=== PATIENT | male | born 1935 | race Caucasian/White ===

== ENCOUNTER → 2017-09-20 | Outpatient (CLI) | payer OTHER ==
[~2017-09-20] MED LIST: ALLOPURINOL100 MG; ATENOLOL25 GM; ATENOLOL50 MG; AVAPRO150 MG; CELEBREX100 MG PO; CIPRO250 MG PO; COUMADIN1 MG; COUMADIN4 MG; FINASTERIDE5 MG; FLAGYL500MG PO; IBERSARTAN; ISOSORBIDE MONO60 MG; KAYEXALATE15 GM/60 M; NORVASC5 MG; SIMVASTATIN20 MG; STIOLTO RESPIMAT4 GM; SYNTHROID50 MCG; TESSALON PERLE100 MG PO; TUSSI PRES-B L120 M1 PO; ULTRACET PO; ZESTRIL10 MG; ZITHROMAX TRI-500 MG PO; ZYLOPRIM100 M1; ZYLOPRIM100 MG; [UNRECOGNIZED DRUG - OTHER]
== END | disposition home or self-care (01) ==
LOC: LAB 11:36
DX: D63.1 Anemia in chronic kidney disease (principal); D63.8 Anemia in other chronic diseases classified elsewhere; N18.1 Chronic kidney disease, stage 1; I10 Essential (primary) hypertension; R80.8 Other proteinuria

== ENCOUNTER 2017-10-17 09:35 | Outpatient (CLI) | payer OTHER | END 2017-10-17 09:51 | disposition home or self-care (01) | LOC: LAB 09:35 | DX: N18.4 Chronic kidney disease, stage 4 (severe) (principal); E87.5 Hyperkalemia; I48.2 Chronic atrial fibrillation ==

== ENCOUNTER 2017-11-02 07:11 | Emergency (ER) | payer OTHER ==
[~2017-11-02] VITALS: Ht 170.2 cm; Wt 70.8 kg
== END 2017-11-02 11:39 | disposition home or self-care (01) ==
LOC: ER 07:11
DX: S83.91XA Sprain of unspecified site of right knee, initial encounter (principal); X50.0XXA Overexertion from strenuous movement or load, initial encounter; Y93.01 Activity, walking, marching and hiking; Y92.018 Other place in single-family (private) house as the place of occurrence of the external cause; Y99.8 Other external cause status

== ENCOUNTER 2017-12-19 10:42 | Outpatient (CLI) | payer OTHER | END 2017-12-19 10:52 | disposition home or self-care (01) | LOC: LAB 10:42 | DX: I48.2 Chronic atrial fibrillation (principal) ==

== ENCOUNTER 2017-12-20 12:00 | Inpatient (IN) | payer OTHER ==
[~2017-12-20] VITALS: Ht 172.7 cm; Wt 72.6 kg
== END 2018-01-05 15:19 | disposition home or self-care (01) | DRG 292 ==
LOC: MEDI 12:00
PROVIDERS: Radiology Vascular & Interventional Radiology
PROC: BT43ZZZ Ultrasonography of Bilateral Kidneys (ICD-10-PCS; 2017-12-20)
PROC: 30233N1 Transfusion of Nonautologous Red Blood Cells into Peripheral Vein, Percutaneous Approach (ICD-10-PCS; 2017-12-20)
PROC: 3E0F7GC Introduction of Other Therapeutic Substance into Respiratory Tract, Via Natural or Artificial Opening (ICD-10-PCS; 2017-12-29)
PROC: 05HM33Z Insertion of Infusion Device into Right Internal Jugular Vein, Percutaneous Approach (ICD-10-PCS; principal; 2017-12-30 18:00)
PROC: 5A1D70Z Performance of Urinary Filtration, Intermittent, Less than 6 Hours Per Day (ICD-10-PCS; 2018-01-01)
DX: I13.0 Hypertensive heart and chronic kidney disease with heart failure and stage 1 through stage 4 chronic kidney disease, or unspecified chronic kidney disease (principal); N17.8 Other acute kidney failure; D68.32 Hemorrhagic disorder due to extrinsic circulating anticoagulants; N18.4 Chronic kidney disease, stage 4 (severe); I50.30 Unspecified diastolic (congestive) heart failure; D63.1 Anemia in chronic kidney disease; I48.0 Paroxysmal atrial fibrillation; E87.5 Hyperkalemia; Z79.01 Long term (current) use of anticoagulants; E86.0 Dehydration; T45.515A Adverse effect of anticoagulants, initial encounter

== ENCOUNTER 2018-01-23 06:51 | Outpatient (CLI) | payer OTHER | END 2018-01-23 07:14 | disposition home or self-care (01) | LOC: LAB 06:51 | DX: I48.0 Paroxysmal atrial fibrillation (principal) ==

== ENCOUNTER 2019-05-04 20:42 | Inpatient (IN) | payer OTHER ==
[~2019-05-04] VITALS: Ht 162.6 cm; Wt 67.1 kg
--- NOTE | 2019-05-04 21:15 | NUR ---
FAMILIAR DE PTE INDICA QUE ENCNTRARON PTE EN EL PISO DE [place] Y NO REACCIONABA. PTE INDICA DIFCULTAD PARA RESPIRAR. PTE ALERTA CONSCINETE Y ORIENTADO X3
[2019-05-04] MEDS ORDERED: TRAMADOL HCL50 MG (21:18)
--- NOTE | 2019-05-04 22:01 | NUR ---
FAMILIAR DE PTE INDICA QUE EN EL BRAZO TAMMY PTE TIENE NOELLE FISTULA, Y NO SE PUEDE CHARLI LA PRESION EN BRAZO TAMMY, REFIERE QUE PTE TIENE EN EL PECHO LADO DERECHO UN CATETER. PTE ES DE DIALYSIS. FAMILIAR INDICA DE SOSPECHA DA ALGUN PROBLEMA MENTAL YA QUE PTE SE (ESPACEA, SE LE OLVIDA EVENTOS DIARIOS, Y AVECES NO LOGRA SEGUIR O DARSE CUENTA DE OBJETOS EN MOVIMIENTO).
--- NOTE | 2019-05-04 22:25 | NUR ---
S ERECIBE PACIENTE MASCULINO DE 84 ANOS,ALERTA,ORIENTADO EN SINGH ESFERAS,EN COMPANIA DE FAMILIAR. UBICADO EN SELENA #17 AREA DE CP ER. CONECTADO A MONITOR CARDIACO,OXIMETRIA DE PULSO CONTINUA. POR ORDEN MEDICA DE SE COLECTAN MUESTRAS DE LABORATORIOS LAS CUALES SON ROTULAS Y ENVIADAS PARA ANALISIS. SE ADMINISTRA MEDICAMETO SAM ORDEN MEDICA BAJO MEDIDAS ASEPTICAS. PACIENTE NO PRESENTA REACCION ADVERSA. TANTO PIETRO PACIENTE Y FAMILIAR [place] SIDO ORIENTADOS SOBRE PROCEDIMIENTOS,LOS CUALES REFIEREN COMPRENDER. SE NOTIFICA ESTUDIO CT A PERSONAL DE TURNO. SE NOTIFICA XRAY A PERSONAL DE TURNO. SE UGO PACIENTE COMODO EN SELENA JUNTO A FAMILIAR. PENDIENTE RE EVALUACION MEDICA.
--- NOTE | 2019-05-04 23:32 | NUR ---
SE RECIBE PACIENTE ALERTA Y ORIENTADO POR SINGH ESFERAS EN COMPANIA DE FAMILIAR EN SELENA CONECTADO A MONITOR CARDIACO CON RITMO CARDIACO IRREGULAR HR 103LAT/MIN, OXIMETRIA DE PULSO AL MOMENTO CAPTURANDO 96% Y ASISTIDO RESPIRATORIAMENTE CON CANULA NASAL A 2 LTS. SE OBSERVA FISTULA EN BRAZO LT Y CATETER EN LADO RT DEL PECHO. SE OBSERVA IVF'S EN ANTEBRAZO RT PATENTE SHAISTA DE EDEMA Y ENROJECIMEINTO BAJANDO UN .9NSS @ 80ML/HR. PACIENTE SHAISTA DE DOLOR, CON BUEN PATRON RESPIRATORIO Y ORINA ESPONTANEA. PENDIENTE 2DA TROPONINAS A LAS 2AM. SE MANTIENE BAJO OBSERVACION POR CAMBIOS.
--- NOTE | 2019-05-05 07:30 | NUR ---
SE RECIBE PTE DEL TURNO ANTERIOR EN SELENA CON BARANDAS ELEVADAS CON IVFS PATENTE, SHAISTA DE EDEMA Y ERITEMA CON 0.9NSS AT 80ML/HR. ALERTA, ORIENTADO POR SINGH, ACOMPANADO POR FAMILIAR. CONECTADO A MONITOR CARDIACO ,CANULA DE OXIGENO A 2 LITS SATURANDO 98% REFIERE SENTIRSE MEJOR. NO PRESENTA DOLOR DE PECHO. SE LE OBSERVA FISTULA EN BRAZO IZQ. SE MANTIENE EN OBSERVACION Y PENDIENTE A CONSULTA CON .
[2019-05-05] MEDS ORDERED: PHOSLO667 M1 (10:55)
[2019-05-05] MEDS ORDERED: SPIRIVA RESPIMAT4 G1 (10:55)
[2019-05-07] MEDS ORDERED: WARFARIN SODIUM1 MG PO (08:01)
== END 2019-05-18 13:16 | disposition home or self-care (01) | DRG 308 ==
LOC: ER 20:42 → MEDJ 05-05 09:37 → SEC-K 05-05 09:37 → MEDJ 05-05 11:37 → ICU 05-07 17:11 → MEDJ 05-13 18:22
PROVIDERS: ADMIT Internal Medicine Cardiovascular Disease
PROC: B246ZZZ Ultrasonography of Right and Left Heart (ICD-10-PCS; principal; 2019-05-05)
PROC: 4A12X4Z Monitoring of Cardiac Electrical Activity, External Approach (ICD-10-PCS; 2019-05-05)
PROC: 4A033R1 Measurement of Arterial Saturation, Peripheral, Percutaneous Approach (ICD-10-PCS; 2019-05-06)
PROC: B345ZZZ Ultrasonography of Bilateral Common Carotid Arteries (ICD-10-PCS; 2019-05-06)
PROC: B030ZZZ Magnetic Resonance Imaging (MRI) of Brain (ICD-10-PCS; 2019-05-06)
PROC: 0T9B70Z Drainage of Bladder with Drainage Device, Via Natural or Artificial Opening (ICD-10-PCS; 2019-05-07)
PROC: 3E0F7GC Introduction of Other Therapeutic Substance into Respiratory Tract, Via Natural or Artificial Opening (ICD-10-PCS; 2019-05-08)
PROC: 0TPB70Z Removal of Drainage Device from Bladder, Via Natural or Artificial Opening (ICD-10-PCS; 2019-05-10)
DX: I48.2 Chronic atrial fibrillation (principal); N18.6 End stage renal disease; J80 Acute respiratory distress syndrome; A41.51 Sepsis due to Escherichia coli [E. coli]; A41.1 Sepsis due to other specified staphylococcus; R65.20 Severe sepsis without septic shock; T80.211A Bloodstream infection due to central venous catheter, initial encounter; E87.2 Acidosis; N17.8 Other acute kidney failure; I67.82 Cerebral ischemia; I13.2 Hypertensive heart and chronic kidney disease with heart failure and with stage 5 chronic kidney disease, or end stage renal disease; I50.1 Left ventricular failure, unspecified; J44.1 Chronic obstructive pulmonary disease with (acute) exacerbation; B37.89 Other sites of candidiasis; B95.7 Other staphylococcus as the cause of diseases classified elsewhere; I65.23 Occlusion and stenosis of bilateral carotid arteries; D63.1 Anemia in chronic kidney disease; E87.5 Hyperkalemia; I25.10 Atherosclerotic heart disease of native coronary artery without angina pectoris; I08.1 Rheumatic disorders of both mitral and tricuspid valves; R55 Syncope and collapse; N39.8 Other specified disorders of urinary system; E03.8 Other specified hypothyroidism; Z99.2 Dependence on renal dialysis; Z79.01 Long term (current) use of anticoagulants
CPT/HCPCS: 70551

== ENCOUNTER 2019-11-02 07:20 | Emergency (ER) | payer OTHER ==
[~2019-11-02] VITALS: Ht 172.7 cm; Wt 68.0 kg
[~2019-11-02 07:20] MED LIST changes: +PHOSLO667 M1; +SPIRIVA RESPIMAT4 G1; +TRAMADOL HCL50 MG; +WARFARIN SODIUM1 MG PO
[2019-11-02] MEDS ORDERED: RENAL VITE PO (07:40)
[2019-11-02] MEDS ORDERED: CARDIZEM30 MG PO (07:41)
[2019-11-02] MEDS ORDERED: FOLIC ACID0.8 M1 PO (07:43)
== END 2019-11-02 10:35 | disposition home or self-care (01) ==
LOC: ER 07:20
DX: I16.0 Hypertensive urgency (principal); I10 Essential (primary) hypertension

== ENCOUNTER 2020-02-28 09:13 | Outpatient (CLI) | payer OTHER ==
[~2020-02-28 09:13] MED LIST changes: +CARDIZEM30 MG PO; +FOLIC ACID0.8 M1 PO; +RENAL VITE PO
== END 2020-02-28 09:17 | disposition home or self-care (01) ==
LOC: RAD 09:13
PROVIDERS: ATTEND Internal Medicine Cardiovascular Disease
DX: J44.9 Chronic obstructive pulmonary disease, unspecified (principal)

== ENCOUNTER 2021-03-24 09:04 | Outpatient (CLI) | payer OTHER | END 2021-03-24 09:17 | disposition home or self-care (01) | LOC: RAD 09:04 | PROVIDERS: ATTEND Internal Medicine Cardiovascular Disease | DX: M77.32 Calcaneal spur, left foot (principal); M77.31 Calcaneal spur, right foot; M79.672 Pain in left foot; M79.671 Pain in right foot ==

== ENCOUNTER 2021-03-30 09:09 | Emergency (ER) | payer OTHER ==
[~2021-03-30] VITALS: Ht 170.2 cm; Wt 71.2 kg
[2021-03-30] MEDS ORDERED: ULTRAM50 MG (10:04)
[2021-03-30] MEDS ORDERED: AMLOD-VALSA-HC1 EACH (10:07)
[2021-03-30] MEDS ORDERED: SPIRIVA RESPIMAT4 G1 (10:07)
[2021-03-30] MEDS ORDERED: PROAIR DIGIHAL90 MCG (10:09)
[2021-03-30] MEDS ORDERED: SKELAXIN800 MG PO (16:39)
[2021-03-30] MEDS ORDERED: ULTRAM50 MG PO (16:40)
== END 2021-03-30 17:07 | disposition home or self-care (01) ==
LOC: ER 09:09
DX: S00.03XA Contusion of scalp, initial encounter (principal); S80.01XA Contusion of right knee, initial encounter; S50.02XA Contusion of left elbow, initial encounter; S80.211A Abrasion, right knee, initial encounter; M54.2 Cervicalgia; W18.2XXA Fall in (into) shower or empty bathtub, initial encounter; Y93.E1 Activity, personal bathing and showering; Y92.012 Bathroom of single-family (private) house as the place of occurrence of the external cause; Y99.8 Other external cause status

== ENCOUNTER 2021-06-08 20:53 | Emergency (ER) | payer OTHER ==
[~2021-06-08] VITALS: Ht 175.3 cm; Wt 72.6 kg
[~2021-06-08 20:53] MED LIST changes: +AMLOD-VALSA-HC1 EACH; +PROAIR DIGIHAL90 MCG; +SKELAXIN800 MG PO; +ULTRAM50 MG; +ULTRAM50 MG PO
== END 2021-06-08 23:47 | disposition home or self-care (01) ==
LOC: ER 20:53
DX: R55 Syncope and collapse (principal); R50.9 Fever, unspecified; Z03.818 Encounter for observation for suspected exposure to other biological agents ruled out

== ENCOUNTER 2021-07-10 07:45 | Emergency (ER) | payer OTHER ==
[~2021-07-10] VITALS: Ht 170.2 cm; Wt 71.2 kg
[2021-07-10] MEDS ORDERED: JANTOVEN1 MG PO (08:08)
== END 2021-07-10 13:17 | disposition home or self-care (01) ==
LOC: ER 07:45
DX: R06.02 Shortness of breath (principal); N18.6 End stage renal disease; Z11.52 Encounter for screening for COVID-19